=== PATIENT | female | born 1970 | race Caucasian/White ===

== ENCOUNTER 2017-12-31 18:09 | Emergency (ER) | payer OTHER ==
[2017-12-31 18:22] VITALS: RESP 18; TEMP 97.9
[2017-12-31] MEDS ORDERED: NS 1,000 ML IV ONE (19:19)
--- NOTE | 2017-12-31 20:11 | EDPHY ---
H & P Stated Complaint: body aches, fever, cough, ear pain, ST Time Seen by Provider: 12/31/17 18:31 HPI/ROS: CHIEF COMPLAINT: Fever, sore throat, body aches HISTORY OF PRESENT ILLNESS: This is a 47-year-old female with chronic regional pain syndrome who presents with almost 5 days of intermittent fever, cough, sore throat, and myalgias. She also reports ear pain. She has been able to eat and drink but not as much as she normally would. Today she started to lose her voice. She has had a flu vaccination. No headache, stiff neck, confusion, skin rash, vomiting, diarrhea, or abdominal pain. She had has not had dysuria. REVIEW OF SYSTEMS: A ten point review of systems was performed and is negative with the exception of the items mentioned in the HPI. Past medical /surgical history: 1. Chronic regional pain syndrome 2. Thyroidectomy 3. Spinal stimulator Social history: She lives with her . She does not use tobacco products or alcohol. General Appearance: Alert. Vital signs reviewed. Afebrile. Eyes: Pupils equal and round, no conjunctival injection, no discharge. Anicteric. ENT, Mouth: Mucous membranes are dry, moderate oropharyngeal erythema with a few scattered vesicular lesions. No exudates. Neck: No lymphadenopathy, supple. No meningeal signs. Respiratory: Lungs are clear to auscultation; no wheezes, rales, or rhonchi. Cardiovascular: Regular rate and rhythm; no murmur, rub, or gallop. Gastrointestinal: Abdomen is obese, soft and nontender, no masses or organomegaly, bowel sounds normal. Skin: Warm and dry, no rashes on exposed skin, normal color. Back: Nontender to palpation over the thoracolumbar spine. Well-healed midline lumbar scar. No CVAT. Extremities: No lower extremity edema, no calf tenderness or swelling. Neurological: Alert and oriented. Moving all four extremities easily and equally. Psychiatric: Normal affect. - Personal History LMP (Females 10-55): 8-14 Days Ago Current Tetanus Diphtheria and Acellular Pertussis (TDAP): Yes - Medical/Surgical History Hx Asthma: No Hx Chronic Respiratory Disease: No Hx Diabetes: No Hx Cardiac Disease: No Hx Renal Disease: No Hx Cirrhosis: No Hx Alcoholism: No Hx HIV/AIDS: No Hx Splenectomy or Spleen Trauma: No Other PMH: RSD, CRPS, pneumonia 2017, Migraines, thyroidectomy - Social History Smoking Status: Never smoked Constitutional: Initial Vital Signs Temperature (C) 36.6 C 12/31/17 18:18 Heart Rate 72 12/31/17 18:18 Respiratory Rate 18 12/31/17 18:18 Blood Pressure 97/66 L 12/31/17 18:18 O2 Sat (%) 90 L 12/31/17 18:18 O2 Delivery Mode Room Air O2 (L/minute) 2 Allergies/Adverse Reactions: morphine Adverse Reaction (Verified 12/31/17 18:22) Home Medications: Medication Instructions Recorded Sertraline HCl [Zoloft 25mg (RX)] 100 mg PO DAILY 02/29/12 Bupropion HCl [Bupropion XL] 300 mg PO DAILY 03/19/12 Verapamil [Calan 80MG (RX)] 80 mg PO BID 03/14/13 Albuterol [Proventil Inhaler] 1 - 2 puffs IH Q4 PRN 03/17/13 Ascorbic Acid [Vitamin C 500 mg 1,000 mg PO DAILY 03/17/13 (OTC)] Cholecalciferol Vit D3 [Vitamin D3 3,000 units PO DAILY 03/17/13 1000 units (OTC)] Diazepam [Valium 10 MG (RX)] 10 mg PO HS PRN 03/17/13 Fiber [Fiber Diet] 1 each PO DAILY 03/17/13 Herbals/Supplements -Info Only 1 each PO AD 03/17/13 Indomethacin [Indocin 25 mg (RX)] 25 mg PO TID PRN 03/17/13 Progesterone,Micronized 400 mg PO .SEE COMMENT 03/17/13 [Prometrium] Verapamil [Calan 80MG (RX)] 80 mg PO BID PRN 03/17/13 Benzonatate [Tessalon Pearles (RX)] 100 - 200 mg PO TID #15 cap 12/31/17 Natpara 12/31/17 Nucynta 12/31/17 Medical Decision Making ED Course/Re-evaluation: My initial impression is that this was likely influenza. Rapid flu testing was negative. Strep testing also negative. However, I am still concerned about the possibility of influenza as the cause of her symptoms. Overall, she appears to have a viral syndrome. I do not suspect pneumonia--her lungs are clear. Shows no urinary symptoms. Her abdomen is soft and nontender. She is not febrile in the emergency department. She is asking for symptom relief. She was given Tylenol and Tessalon Perles. She also received 1 L IV normal saline as she had dry mucous membranes and has not been eating and drinking well. 9:20 p.m. patient has been resting comfortably while her IV fluid infuses. She review has not been coughing. Pulse ox on room air is 95%. She will be discharged home with instructions for symptomatic treatment and danger signs. Prescription for Tessalon Perles provided. Differential Diagnosis: Fever in adults including but not limited to pneumonia, urinary tract infection , viral syndrome, and influenza. - Data Points Laboratory Results: 12/31/17 12/31/17 12/31/17 Unknown 19:23 19:07 Influenza A,B Rapid NEGATIVE FOR FLU (NEGATIVE) Group A Strep Screen NEGATIVE (NEGATIVE) Group A Strep DNA Pending Medications Given: Discontinued Medications Acetaminophen (Tylenol) 650 mg PO EDNOW ONE Stop: 12/31/17 20:17 Last Admin: 12/31/17 20:22 Dose: 650 mg Benzonatate (Tessalon Pearles) 200 mg PO EDNOW ONE Stop: 12/31/17 20:16 Last Admin: 12/31/17 20:22 Dose: 200 mg Sodium Chloride (Ns) 1,000 mls @ 0 mls/hr IV EDNOW ONE; Wide Open PRN Reason: Protocol Stop: 12/31/17 19:20 Last Admin: 12/31/17 20:14 Dose: 1,000 mls Departure - Departure Disposition: Home, Routine, Self-Care Clinical Impression: Viral syndrome Condition: Good Instructions: Viral Syndrome (ED) Additional Instructions: Adult Pain & Fever Control: We recommend Acetaminophen (Tylenol) and Ibuprofen (Motrin,Advil) for pain and fever control. When fever is high or pain severe, both drugs can be used at the same time, but at different intervals. Please note the time differences. Your dose is: Acetaminophen [650]mg every 4 to 6 hours Ibuprofen [400]mg every [6] hours with food If you're taking indomethacin you should not take ibuprofen. Note: do not take Acetaminophen with Hydrocodone (Vicodin, Lortab) or Oycodone (Percocet). These medications also contain Acetaminophen. No more than 3000mg of Acetaminophen should be taken in 24 hours (for an adult). Try to stay well hydrated, even though your throat hurts. Any of the over-the- counter sore throat remedies are fine to use--lozenges, salt water gargles, tea with honey (try Dickens Throat Coat tea)--they don't provide lasting relief but might help enough so that you can eat and drink. I am referring you to the primary care doctor that is superintendent of generation for the emergency department. It is fine for you to follow up with your own PCP, Dr. Faye. Referrals: Ana Landry MD [Medical Doctor] - As per Instructions Prescriptions: Benzonatate [Tessalon Pearles (RX)] 100 - 200 mg PO TID #15 cap
[2017-12-31] MEDS ORDERED: BENZONATATE 100 MG CAP PO ONE (20:15)
[2017-12-31] MEDS ORDERED: ACETAMINOPHEN 325 MG TAB PO ONE (20:16)
[2017-12-31 21:41] VITALS: PULSE 71; O2SAT 93
[2017-12-31 21:46] VITALS: BP 116/74
== END 2017-12-31 21:34 | disposition home or self-care (01) ==
LOC: CED 18:09
DX: B34.9 Viral infection, unspecified (principal); E86.9 Volume depletion, unspecified
CPT/HCPCS: 87400-PO; 87880-PO

== ENCOUNTER 2018-09-06 18:53 | Emergency (ER) | payer OTHER ==
[2018-09-06] MEDS ORDERED: HYDROmorphONE/DILAUDID 2 MG/ML INJ IVP ONE ×2 (19:10→21:52)
[2018-09-06] MEDS ORDERED: ONDANSETRON 4 MG/2 ML VIAL IVP ONE (19:10)
[2018-09-06] MEDS ORDERED: NS 1,000 ML IV ONE ×2 (19:10→19:32)
[2018-09-06] MEDS ORDERED: FAMOTIDINE 20 MG in NS 100 ML IV ONE (19:10)
[2018-09-06] MEDS ORDERED: PROMETHAZINE HCL 25 MG/ML INJ IVP ONE (19:10)
[2018-09-06] MEDS ORDERED: FAMOTIDINE 20 MG/2 ML SDV ONE (19:16)
--- NOTE | 2018-09-06 19:17 | EDPHY ---
H & P Time Seen by Provider: 09/06/18 18:58 HPI/ROS: HPI Abdominal pain, vomiting and diarrhea. 47-year-old female by private vehicle with her . This patient reports that early this morning she woke up with nausea, vomiting, diarrhea and epigastric pain and cramping. She reports that this has continued all day. She describes the diarrhea as watery. No bloody or melenic stool. She has had multiple episodes of nonbilious, nonbloody vomiting as well as dry heaving. Last meal was last night. She denies any ill contacts. No foreign travel. No change in diet. Previous abdominal surgery includes a lap band procedure 10 years ago. ROS: Constitutional: No fever, no chills. No weakness. Eyes: No discharge. No changes in vision. ENT: No sore throat. No nasal congestion or rhinorrhea. Respiratory: No cough. No shortness of breath. Cardiac: No chest pain, no palpitations. Gastrointestinal: As above. Genitourinary: No hematuria. No dysuria or increased frequency with urination. Musculoskeletal: No back pain. No neck pain. No myalgias or arthralgias. Skin: No rashes. Neurological: No headache. No focal weakness or altered sensation. Past medical history: Chronic pain syndrome, reflex sympathetic dystrophy, hypothyroidism, thyroidectomy, migraine headaches, as above. Social history: Nonsmoker. No alcohol. Here with her . Physical Exam: General Appearance: Alert, she appears uncomfortable. This patient is responding to questions appropriately and in full sentences. This patient appears well-hydrated and well-nourished. Eyes: Pupils equal and round no pallor or injection. No lid edema, erythema or injection. Respiratory: There are no retractions, lungs are clear to auscultation anteriorly with good air movement bilaterally. Cardiovascular: Regular rate and rhythm. No murmur. Gastrointestinal: Obese habitus. Abdomen is soft with [id number] epigastric tenderness on palpation, no masses, bowel sounds normal. No focal tenderness at McBurney's point. No Almaraz sign. Neurological: Motor sensory function is grossly intact. Cranial nerves are normal. Gait is normal. Skin: Warm and dry, no rashes. Musculoskeletal: Neck is supple and nontender. Extremities are symmetrical. All joints range without pain or impingement. Psychiatric: No agitation. No depression. Database: EKG: Imaging: CT abdomen and pelvis with IV contrast: This is essentially an unremarkable study. There is no evidence of obstructive process or other acute surgical process. The lap band appears intact and without complication. IUD and spinal stimulator noted. Results were discussed with staff radiologist Dr. Alec Harding. Procedures: Emergency department course: Triage vital signs reviewed. She is moderately hypertensive. Vital signs are otherwise normal. IV was placed. She was placed on a monitor. She was started on IV normal saline with 1-2 L to be given over the next 1-2 hours. Initially for pain and antiemetic she will be given 0.5 mg of IV hydromorphone as well as 4 mg of IV Zofran and 6.2 mg of IV Phenergan. She also will receive 20 mg of IV Pepcid. Secondary to history of lap band procedure and patient's presentation, CT abdomen and pelvis will be obtained to evaluate for possible obstructive process. She consents to emergency department workup. 8:30 p.m., the patient received an additional 0.5 mg of IV hydromorphone for pain. She has not had any vomiting or diarrhea while in the emergency department. 9:50 p.m., the patient was re-evaluated. She states that she is feeling better but states that she would like some more pain medication. Her repeat abdominal exam, soft, nontender and nondistended. Bowel sounds are present. I explained to her and her the results of her diagnostic workup including CT scan in detail. All of their questions were answered. I agreed to give her 1 more dose of 0.5 mg of IV hydromorphone. She states that she would feel comfortable going home after this. I discussed diagnosis of a viral gastroenteritis versus a food-borne illness. She does feel comfortable going home with her . Follow-up and return to emergency department precautions reviewed. All of their questions were answered. The patient was discharged home in good condition with her . Differential Diagnosis: The differential diagnosis on this patient includes but is not limited to food borne illness, viral gastroenteritis. Bowel obstruction, cholecystitis, pancreatitis, appendicitis unlikely. This represents a partial list of diagnoses considered. These considerations are based on history, physical exam , past history, reassessment and diagnostic testing. Smoking Status: Never smoked Constitutional: Initial Vital Signs Temperature (C) 36.6 C 09/06/18 19:01 Heart Rate 82 11/06/18 19:01 Respiratory Rate 18 09/06/18 19:01 Blood Pressure 152/97 H 09/06/18 19:01 O2 Sat (%) 97 09/06/18 19:01 O2 Delivery Mode Room Air Allergies/Adverse Reactions: morphine Adverse Reaction (Verified 12/31/17 18:22) Home Medications: Medication Instructions Recorded Sertraline HCl [Zoloft 25mg (RX)] 100 mg PO DAILY 02/29/12 Bupropion HCl [Bupropion XL] 300 mg PO DAILY 03/19/12 Verapamil [Calan 80MG (RX)] 80 mg PO BID 03/14/13 Albuterol [Proventil Inhaler] 1 - 2 puffs IH Q4 PRN 03/17/13 Ascorbic Acid [Vitamin C 500 mg 1,000 mg PO DAILY 03/17/13 (OTC)] Cholecalciferol Vit D3 [Vitamin D3 3,000 units PO DAILY 03/17/13 1000 units (OTC)] Diazepam [Valium 10 MG (RX)] 10 mg PO HS PRN 03/17/13 Fiber [Fiber Diet] 1 each PO DAILY 03/17/13 Herbals/Supplements -Info Only 1 each PO AD 03/17/13 Indomethacin [Indocin 25 mg (RX)] 25 mg PO TID PRN 03/17/13 Progesterone,Micronized 400 mg PO .SEE COMMENT 03/17/13 [Prometrium] Verapamil [Calan 80MG (RX)] 80 mg PO BID PRN 03/17/13 Benzonatate [Tessalon Pearles (RX)] 100 - 200 mg PO TID #15 cap 12/31/17 Natpara 12/31/17 Nucynta 12/31/17 Ondansetron Odt [Zofran Odt 4 mg 4 mg PO Q4PRN PRN #10 tab 09/06/18 (*)] Promethazine HCl [Phenergan 25mg 25 mg PO Q4-6PRN PRN #12 tab 09/06/18 (*)] Medical Decision Making - Diagnostics Imaging Results: Imaging Impressions Abdomen CT 09/06/18 19:11 Impression: 1. No acute abdominal or pelvic abnormality. 2. See above report for additional findings. Results called and discussed with Selam Kelly MD on 09/06/2018 at 21: 50. - Data Points Laboratory Results: 09/06/18 09/06/18 19:15 19:10 POC Sodium 144 mEq/L mEq/L (135-145) POC Potassium 3.5 mEq/L mEq/L (3.3-5.0) POC Chloride 106.0 mEq/L mEq/L (97-110) POC Total CO2 27 mEq/L mEq/L (22-31) POC BUN 13 mg/dL mg/dL (7-23) POC Creatinine 1.1 mg/dL H mg/dL (0.6-1.0) POC Glucose 98 mg/dL mg/dL (70-100) POC Calcium 8.4 mg/dL L mg/dL (8.5-10.4) POC Total Bilirubin 0.8 mg/dL mg/dL (0.1-1.4) POC AST 35 IU/L IU/L (14-46) POC ALT 26 IU/L IU/L (9-52) POC Alk Phosphatase 145 IU/L H IU/L (38-126) POC Total Protein 8.2 g/dL g/dL (6.3-8.2) POC Albumin 4.3 g/dL g/dL (3.5-5.0) Lipase 78 IU/L IU/L (23-300) Medications Given: Discontinued Medications Hydromorphone HCl (Dilaudid) 0.5 mg IVP EDNOW ONE Stop: 09/06/18 19:11 Last Admin: 09/06/18 19:23 Dose: 0.5 mg Hydromorphone HCl (Dilaudid) 1 mg IVP EDNOW ONE Stop: 09/06/18 20:33 Last Admin: 09/06/18 20:43 Dose: 1 mg Hydromorphone HCl (Dilaudid) 0.5 mg IVP EDNOW ONE Stop: 09/06/18 21:53 Last Admin: 09/06/18 22:04 Dose: 0.5 mg Sodium Chloride (Ns) 1,000 mls @ 0 mls/hr IV EDNOW ONE; Wide Open PRN Reason: Protocol Stop: 09/06/18 19:11 Last Admin: 09/06/18 19:23 Dose: 1,000 mls Famotidine 20 mg/ Sodium (Chloride) 102 mls @ 408 mls/hr IV EDNOW ONE Stop: 09/06/18 19:24 Last Admin: 09/06/18 19:22 Dose: 102 mls Sodium Chloride (Ns) 1,000 mls @ 0 mls/hr IV EDNOW ONE; Wide Open PRN Reason: Protocol Stop: 09/06/18 19:33 Last Admin: 09/06/18 20:44 Dose: 1,000 mls Ondansetron HCl (Zofran) 4 mg IVP EDNOW ONE Stop: 09/06/18 19:11 Last Admin: 09/06/18 19:23 Dose: 4 mg Ondansetron HCl (Zofran Odt 4 Mg Prepack#2) 1 btl TAKEHOME EDNOW ONE Stop: 09/06/18 21:54 Last Admin: 09/06/18 22:18 Dose: 1 btl Promethazine HCl (Phenergan) 6.25 mg IVP EDNOW ONE Stop: 09/06/18 19:11 Last Admin: 09/06/18 20:44 Dose: Not Given Promethazine HCl (Phenergan 25 Mg Prepack #4) 1 btl TAKEHOME EDNOW ONE Stop: 09/06/18 21:54 Last Admin: 09/06/18 22:19 Dose: 1 btl Point of Care Test Results: CBC CBC Collection Date 09/06/18 CBC Collection Time 19:10 WBC 14.7 RBC 4.81 HGB 14.8 HCT 41.9 PLT 416 Neut # 12.9 Neut 87.3 LYMPH # 1.5 LYMPH 10.4 Other WBC # 0.3 Other WBC 2.3 MCV 87.1 Chemistry 09/06/18 19:15 POC Sodium 144 mEq/L mEq/L (135-145) POC Potassium 3.5 mEq/L mEq/L (3.3-5.0) POC Chloride 106.0 mEq/L mEq/L (97-110) POC Total CO2 27 mEq/L mEq/L (22-31) POC BUN 13 mg/dL mg/dL (7-23) POC Creatinine 1.1 mg/dL H mg/dL (0.6-1.0) POC Glucose 98 mg/dL mg/dL (70-100) POC Calcium 8.4 mg/dL L mg/dL (8.5-10.4) POC Total Bilirubin 0.8 mg/dL mg/dL (0.1-1.4) POC AST 35 IU/L IU/L (14-46) POC ALT 26 IU/L IU/L (9-52) POC Alk Phosphatase 145 IU/L H IU/L (38-126) POC Total Protein 8.2 g/dL g/dL (6.3-8.2) POC Albumin 4.3 g/dL g/dL (3.5-5.0) Urine Collection Date 09/06/18 Collection Time 08:40 HCG Results Negative Urine Dip Collection Date 09/06/18 Collection Time 20:40 Specific [place] (1.002-1.030) 1.020 PH (5.0-7.5) 7.0 Leukocytes (Negative) Negative Nitrites (Negative) Negative Protein (Negative) 1+ Glucose (Negative) Negative Ketones (Negative) 3+ Urobilnogen (0.2-1.0 EU) 0.2 Bilirubin (Negative) Test Not Performed Blood (Negative) Negative Departure - Departure Disposition: Home, Routine, Self-Care Clinical Impression: Vomiting and diarrhea, Abdominal pain Condition: Good Instructions: Gastroenteritis (ED), Acute Abdominal Pain (ED) Additional Instructions: Read and follow provided instructions. Follow-up with your primary care physician in 1-2 days for re-evaluation. You should have your electrolyte panel and kidney function rechecked at that time. Take medication as prescribed for nausea. It is important you stay well hydrated. A good fluid to drink is Gatorade mixed with water in a 1-1 dilution. Advance your diet slowly. Return to the emergency department for worsening symptoms, worsening abdominal pain, vomiting and inability to keep fluids down despite medications, bloody stool or other serious concerns. Referrals: PILI HOLLIDAY [Other] - As per Instructions Prescriptions: Ondansetron Odt [Zofran Odt 4 mg (*)] 4 mg PO Q4PRN PRN #10 tab PRN Reason: For Nausea & Vomiting Promethazine HCl [Phenergan 25mg (*)] 25 mg PO Q4-6PRN PRN #12 tab PRN Reason: For Nausea & Vomiting
[2018-09-06] MEDS ORDERED: IOPAMIDOL (ISOVUE-300) 100 ML BTL ONE (19:20)
[2018-09-06] MEDS ORDERED: HYDROmorphONE/DILAUDID 1 MG/ML INJ IVP ONE (20:32)
[2018-09-06] MEDS ORDERED: PROMETHAZINE 25 MG PREPACK #4 BTL TAKEHOME ONE (21:53)
[2018-09-06] MEDS ORDERED: ONDANSETRON 4MG PREPACK#2 BTL TAKEHOME ONE (21:53)
[2018-09-06 22:24] VITALS: BP 134/66
== END 2018-09-06 22:23 | disposition home or self-care (01) ==
LOC: CED 18:53
DX: R11.2 Nausea with vomiting, unspecified (principal); R19.7 Diarrhea, unspecified; E86.9 Volume depletion, unspecified
CPT/HCPCS: 74177-PO; 80053-PO; 96365; J1170; J2405; Q9967

== ENCOUNTER 2019-01-20 20:50 | Emergency (ER) | payer OTHER ==
[2019-01-20 21:03] VITALS: BP 124/93
--- NOTE | 2019-01-20 21:14 | EDPHY ---
H & P Time Seen by Provider: 01/20/19 20:59 HPI/ROS: This patient presents with damage her cast when it got wet from a plastic bag failure while showering. She is 2 weeks out from ORIF of her right ankle in just had her cast change this week and orthopedic physician's office and [place]. After calling her orthopedic surgeon relating the damaged cast he requested that she come the emergency department to have the cast cut off, splint placed on an to follow up with them early this coming week for replacement of the cast. ROS: Constitutional: No fevers Musculoskeletal She reports no significant discomfort at this point her ankle has no other musculoskeletal complaints except mild ankle pain 5 point review of symptoms is performed and otherwise negative with exception of pertinent positives and negatives listed in HPI and ROS Smoking Status: Never smoked Physical Exam: Physical Exam Vital signs are normal. General: No acute distress Cardiac: Brisk capillary refill is intact throughout. Skin: No rash or pallor. Extremities: Atraumatic normal except for right lower extremity Right lower extremity: Short leg cast -fiberglass pain Neuro: Alert and oriented x3 with no sensorimotor deficits. Constitutional: Initial Vital Signs Temperature (C) 36.6 C 01/20/19 20:59 Heart Rate 95 01/20/19 20:59 Respiratory Rate 20 01/20/19 20:59 Blood Pressure 124/93 H 01/20/19 20:59 O2 Sat (%) 97 01/20/19 20:59 O2 Delivery Mode Room Air Allergies/Adverse Reactions: morphine Adverse Reaction (Verified 12/31/17 18:22) Home Medications: Medication Instructions Recorded Sertraline HCl [Zoloft 25mg (RX)] 100 mg PO DAILY 02/29/12 Bupropion HCl [Bupropion XL] 300 mg PO DAILY 03/19/12 Verapamil [Calan 80MG (RX)] 80 mg PO BID 03/14/13 Albuterol [Proventil Inhaler] 1 - 2 puffs IH Q4 PRN 03/17/13 Ascorbic Acid [Vitamin C 500 mg 1,000 mg PO DAILY 03/17/13 (OTC)] Cholecalciferol Vit D3 [Vitamin D3 3,000 units PO DAILY 03/17/13 1000 units (OTC)] Diazepam [Valium 10 MG (RX)] 10 mg PO HS PRN 03/17/13 Fiber [Fiber Diet] 1 each PO DAILY 03/17/13 Herbals/Supplements -Info Only 1 each PO AD 03/17/13 Indomethacin [Indocin 25 mg (RX)] 25 mg PO TID PRN 03/17/13 Progesterone,Micronized 400 mg PO .SEE COMMENT 03/17/13 [Prometrium] Verapamil [Calan 80MG (RX)] 80 mg PO BID PRN 03/17/13 Benzonatate [Tessalon Pearles (RX)] 100 - 200 mg PO TID #15 cap 12/31/17 Natpara 12/31/17 Nucynta 12/31/17 Ondansetron Odt [Zofran Odt 4 mg 4 mg PO Q4PRN PRN #10 tab 09/06/18 (*)] Promethazine HCl [Phenergan 25mg 25 mg PO Q4-6PRN PRN #12 tab 09/06/18 (*)] MDM/Departure - [facility] ED Course/Re-evaluation: I removed the water damage to cast with a cast cutter without difficulty. There were no complications. Splinting: Our tech placed Ortho Glass posterior short-leg splint and sugar- tong Ortho Glass the ankle. Patient is neurovascularly intact post splint application. She understands that she is nonweightbearing will use crutches. - Depart Disposition: Home, Routine, Self-Care Clinical Impression: Aftercare for cast or splint check or change Condition: Good Instructions: Crutch Instructions (ED), Splint Care (ED) Additional Instructions: Diagnosis: Cast/splint change Plan: We removed her cast according to her orthopedic physician's request since it got wet. We placed a fiberglass splint on her ankle and you should also keep this clean and dry. She should not bear any weight on this splint. She has crutches. Call your orthopedic physician on Wednesday to arrange for close follow-up for casting. Referrals: PILI HOLLIDAY MD [Other] - As per Instructions
== END 2019-01-20 21:40 | disposition home or self-care (01) ==
LOC: CED 20:50
PROC: 2W3QX1Z Immobilization of Right Lower Leg using Splint (ICD-10-PCS; principal; 2019-01-20)
DX: S82.891D Other fracture of right lower leg, subsequent encounter for closed fracture with routine healing (principal); Y99.9 Unspecified external cause status
CPT/HCPCS: 99283-ER